=== PATIENT | male | born 1950 | race Caucasian/White ===

== ENCOUNTER 2018-11-04 11:09 | Emergency (ER) | payer OTHER ==
[~2018-11-04] VITALS: Ht 180.3 cm; Wt 74.8 kg
[~2018-11-04 11:09] MED LIST: ALPR1; Augmentin 875-1 EACH PO; CYCL10 PO; Cyclobenzaprine5 MG PO; Desyrel50 MG; METPRE4DP PO; Naprosyn375 MG PO; Naprosyn500 MG PO; Norco 10-325 T1 EACH PO; Norco 5-325 Ta1 EACH PO; Ultram50 MG PO; Valium5 MG PO; Xanax1 MG PO; Zoloft50 MG PO
[2018-11-04 12:32] LABS: BASOPHILS ABSOLUTE AUTO 0.02 K/mm3 (0.00-0.23); BASOPHILS PERCENT AUTO 0 % (0-2); EOSINOPHILS ABSOLUTE AUTO 0.03 K/mm3 (0.00-0.68); EOSINOPHILS PERCENT AUTO 0 % (0-6); Hematocrit 48.8 % (37.0-53.0); IMMATURE GRAN ABSOLUTE AUTO 0.04 K/mm3 (0.00-0.10); IMMATURE GRAN PERCENT AUTO 0 % (0-1); LYMPHOCYTES ABSOLUTE AUTO 1.82 K/mm3 (0.84-5.20); LYMPHOCYTES PERCENT AUTO 18 % (21-46); MONOCYTES ABSOLUTE AUTO 0.66 K/mm3 (0.16-1.47); MONOCYTES PERCENT AUTO 7 % (4-13); Mean Corpuscular HGB 32.1 pg (26.0-34.0); Mean Corpuscular HGB Conc 34.8 g/dL (31.5-36.5); Mean Corpuscular Volume 92 fL (80-100); NEUTROPHILS ABSOLUTE AUTO 7.44 K/mm3 (1.96-9.15); NEUTROPHILS PERCENT AUTO 74 % (41-73); RDW Coefficient Variation 12.5 % (11.7-14.2); RDW Standard Deviation 42.8 fL (35.1-46.3); Red Blood Cell Count 5.29 M/mm3 (4.30-5.90); White Blood Cell Count 10.01 K/mm3 (4.00-11.30)
[2018-11-04 12:46] LABS: Mean Platelet Volume 9.6 fL (9.1-12.4); Platelet Count 233 K/mm3 (150-400)
[2018-11-04 12:49] LABS: Alanine Aminotransfer (ALT/SGP 39 U/L (12-78); Albumin/Globulin Ratio 0.8 (0.8-1.8); Alk Phos 76 U/L (50-136); Anion Gap 8 mmol/L (6-16); Aspartate Aminotrans (AST/SGOT 34 U/L (12-37); Bilirubin, Total 1.1 mg/dL (0.1-1.0); Blood Urea Nitrogen 18 mg/dL (8-24); Bun/Creatinine Ratio 21.1 (12.0-20.0); CO2, Blood 23 mmol/L (21-32); Calcium, Blood 9.2 mg/dL (8.5-10.1); Chloride, Blood 106 mmol/L (98-108); Creatinine, Blood 0.85 mg/dL (0.60-1.20); Ethanol (Alcohol), Blood, Med <3 mg/dL; Globulin, Blood 4.8 g/dL (2.2-4.0); Glomerular Filtration Rate >60 (60-); Glucose, Blood 125 mg/dL (70-99); Potassium, Blood 3.9 mmol/L (3.5-5.5); Salicylate 4.6 mg/dL (2.8-20.0); Sodium, Blood 137 mmol/L (136-145); Thyroxine (T4) 11.9 ug/dL (4.5-12.1); Total Protein, Blood 8.8 g/dL (6.4-8.2)
[2018-11-04 12:57] LABS: Acetaminophen, Random <2.0 ug/mL (10.0-30.0)
== END 2018-11-04 13:43 | disposition home or self-care (01) ==
LOC: ER 11:09
PROVIDERS: Internal Medicine
DX: F41.9 Anxiety disorder, unspecified (principal); Z79.899 Other long term (current) drug therapy; Z87.891 Personal history of nicotine dependence
CPT/HCPCS: 80053; 84436; 84443; 85025; 99282; G0480

== ENCOUNTER 2019-11-08 13:10 | Emergency (ER) | payer OTHER ==
[~2019-11-08] VITALS: Ht 180.3 cm; Wt 77.1 kg
[2019-11-08] MEDS ORDERED: IBUP800 PO (14:26)
== END 2019-11-08 15:01 | disposition home or self-care (01) ==
LOC: ER 13:10
DX: M25.511 Pain in right shoulder (principal); I10 Essential (primary) hypertension; F32.9 Major depressive disorder, single episode, unspecified; F41.9 Anxiety disorder, unspecified; Z79.899 Other long term (current) drug therapy; Z87.891 Personal history of nicotine dependence
CPT/HCPCS: 73030; 99283-25